=== PATIENT | female | born 1965 | race Caucasian/White ===

== ENCOUNTER 2016-09-25 18:15 | Emergency (ER) | payer BC ==
--- NOTE | ~2016-09-25 | ER ---
PATIENT'S NAME: FANNY HALL [facility] AGE: 51 Y [address] ROOM: [place] [address] LOCATION: [facility] ADMIT DATE: 09/25/2016 ER/Outpatient Report DISCHARGE DATE: 09/25/2016 FAMILY PHYSICIAN: Ashley Dubose PA-C ATTENDING PHYSICIAN: Brenda Funes HISTORY OF PRESENT ILLNESS: This is a 51-year-old female who presents today with chief complaint again of a bulge in her vaginal area and pain that she describes as cramping in nature. She says it is an 8/10. She is afraid she has uterine prolapse. The patient says it started bothering her about 4 days ago, but today it was the first day that she had all this pain. Denies any vaginal discharge or vaginal bleeding at all. It does not hurt to wipe. She is postmenopausal by two years. She states that this has never happened before. Says she did not feel this bulge with heavy bearing down or anything else. No fever or chills. No urinary complaints. No burning with urination. No hematuria. No other complaints. PAST MEDICAL HISTORY: Includes asthma, connective tissue disorder, PVCs. SURGICAL HISTORY: History of a cath. SOCIAL HISTORY: She is an RN. Denies smoking or using any drugs. She does use alcohol socially. MEDICATIONS: Please see med list. ALLERGIES: PLEASE SEE MED LIST. PHYSICAL EXAMINATION: GENERAL: The patient is in no acute distress at this time. She is lying on her left side. She is not actively vomiting or retching or writhing in pain. She looks pretty comfortable, otherwise. HEENT: Pupils are equal and reactive to light. Extraocular movements are intact. HEART: Regular rate and rhythm. LUNGS: Lung sounds are clear. ABDOMEN: Soft, nontender, nondistended. She is obese, but she has no guarding or rebound. No right lower quadrant tenderness. No left lower quadrant tenderness. No suprapubic tenderness. PELVIC: This was done with the RN kelp cutter. Speculum was placed PATIENT'S NAME: FANNY HALL [facility] AGE: 51 Y [address] ROOM: [place] [address] LOCATION: [facility] ADMIT DATE: 09/25/2016 ER/Outpatient Report DISCHARGE DATE: 09/25/2016 FAMILY PHYSICIAN: Ashley Dubose PA-C ATTENDING PHYSICIAN: Brenda Funes and I am able to visualize the cervix. There is no uterine prolapse. The cervix looks pink and healthy mostly except at the 6 o'clock area where it appears mildly erythematous. The cervix in general I think looks mildly edematous as well. There is no ulceration that I see. Her vaginal vault looks well as well. There is no discharge. She has pain when I push at the 6 o'clock area of the cervix where she has erythema there. Bimanual exam was, otherwise, negative. EXTREMITIES: She moves all extremities without any difficulty. Her gait was within normal limits as well. EMERGENCY ROOM COURSE: We checked a urine here and we also checked a GC gonorrhea, chlamydia as well in the urine. While I do not suspect that there has been STD or STI. I think this is cervicitis and that would be the leading cause of it; however, she is and in a monogamous relationship with her she says. The urine shows leuks of 25, negative nitrite, lots of epithelial cells, 0 to 2 wbc's, negative blood, negative rbc's, negative bacteria. I went back to reassess the patient and she feels a lot better with one Percocet. I did tell her that she needs to follow up with [facility] as this looks like cervicitis, it could just be postmenopausal changes, but she should see [facility] to see if she needs that biopsied or if she needs another smear and further workup. We gave her a referral card. She understands the reasons to come back to the ER sooner. IMPRESSION: Cervicitis. MD ALLIE POMPA/sarina /[id number] d: [birth year] t: 09/29/161817, OUTPATIENT REPORT
[~2016-09-25 18:15] MED LIST: AMBIEN5 MG PO; CLINORIL200 MG PO; DELTASONE10 MG PO; FASTIN **IA 9/30 MG PO; FOLIC ACID1 MG PO; GUIATUSS AC 1515 ML PO; OSCAL + D500 MG PO; PLAQUENIL200 MG PO; PULMICORT FLE180 MCG INH; RHEUMATREX2.5 MG PO; SUPER B-50 COM1 EACH PO; THERAGRAN-M1 TAB PO; VITAMIN D350000 UNIT PO; XOPENEX1.25 MG/3 INH
[2016-09-25 19:33] LABS: BILIRUBIN URINE NEGATIVE (NEGATIVE); BLOOD URINE NEGATIVE /UL (NEGATIVE); COLOR URINE YELLOW (YELLOW); GLUCOSE URINE NEGATIVE (NEGATIVE); KETONE URINE NEGATIVE (NEGATIVE); LEUKOCYTES URINE 25 /UL (NEGATIVE); NITRITE URINE NEGATIVE (NEGATIVE); PROTEIN URINE NEGATIVE (NEGATIVE); SPEC GRAVITY URINE 1.025 (1.003-1.035); TURBIDITY URINE CLEAR (CLEAR); UROBILINOGEN URINE NORMAL (NORMAL)
[2016-09-25 19:42] LABS: BACTERIA URINE NEGATIVE (NEGATIVE); RBC URINE NEGATIVE #/HPF (NEGATIVE); WBC URINE 0-2 #/HPF (NEGATIVE)
== END 2016-09-25 19:48 | disposition disaster alternative care site (69) ==
LOC: GMED 18:15
PROVIDERS: Emergency Medicine
DX: N72 Inflammatory disease of cervix uteri (principal); J45.909 Unspecified asthma, uncomplicated; Z79.899 Other long term (current) drug therapy